=== PATIENT | female | born 1995 | race Two or more races ===

== ENCOUNTER 2024-01-16 21:35 | Emergency (ER) | payer OTHER ==
[~2024-01-16] VITALS: Ht 167.6 cm; Wt 63.5 kg
== END 2024-01-17 00:34 ==
LOC: ER 21:36
DX: S90.121A Contusion of right lesser toe(s) without damage to nail, initial encounter (principal); X58.XXXA Exposure to other specified factors, initial encounter; Y93.89 Activity, other specified; Y92.89 Other specified places as the place of occurrence of the external cause; Y99.9 Unspecified external cause status; Z88.0 Allergy status to penicillin